=== PATIENT | female | born 2000 | race Caucasian/White ===

== ENCOUNTER 2022-08-03 05:22 | Emergency (ER) | payer OTHER ==
[2022-08-03 05:38] VITALS: BP 112/63
--- NOTE | 2022-08-03 05:50 | ED Physician Documentation ---
History of Present Illness - Stated complaint Stated Complaint: NEEDS COVID TEST - Chief complaint Chief Complaint: General - History obtained from History obtained from: Patient - Additonal information Additional information: The patient comes to the emergency department chief complaint of needing a COVID test. She has had viral symptoms over the last 24 hours and states she cannot go to work if she is positive for COVID. The patient states she has had most of her symptoms since yesterday evening and has noticed a feeling of being hot then cold, that she has not measured a temperature. The patient has had mild nasal congestion and has had body aches. She had some transient nausea which is now better. She denies any vomiting. No cough, shortness of breath, or sore throat. The patient states that a few other people in her office have been diagnosed with COVID over the last month. No other complaints at this time. PD PAST MEDICAL HISTORY - Past Medical History Past Medical History: No - Past Surgical History Past Surgical History: No - Present Medications Home Medications: Ambulatory Orders Medication Instructions Recorded Confirmed No Known Home Medications 08/03/22 08/03/22 - Allergies Allergies/Adverse Reactions: Allergies Allergy/AdvReac Type Severity Reaction Status Date / Time No Known Drug Allergies Allergy Verified 08/03/22 05:38 - Social History Does the pt smoke?: Yes Smoking Status: Current every day smoker Does the pt drink ETOH?: Yes ETOH Use: Liquor Does the pt have substance abuse?: No - Immunizations Immunizations are current?: Yes - POLST Patient has POLST: No PD ED PE NORMAL - Vitals Vital signs reviewed: Yes - General General: Alert and oriented X 3, No acute distress, Well developed/nourished - HEENT HEENT: Atraumatic, PERRL, EOMI, Moist mucous membranes - Neck Neck: Supple, no meningeal sign - Cardiac Cardiac: RRR, No murmur, Strong equal pulses - Respiratory Respiratory: No respiratory distress, Clear bilaterally - Abdomen Abdomen: Soft, Non tender, Non distended - Derm Derm: Normal color, Warm and dry, No rash - Extremities Extremities: No deformity - Neuro Neuro: Alert and oriented X 3 - Psych Psych: Normal mood, Normal affect Results - Vitals Vitals: Vital Signs - 24 hr 08/03/22 05:33 Temperature 37.1 C Heart Rate 101 H Respiratory 17 Rate Blood Pressure 112/63 O2 Saturation 98 Oxygen O2 Source Room air PD Medical Decision Making - ED course Complexity details: reviewed results, re-evaluated patient, considered differential, d/w patient ED course: A respiratory PCR panel was obtained and is pending at this time. I discussed with the patient that we will let her go home and I will give her a work note for today, and we will call her if her COVID test is positive. I have given her the hospital website information to set up the patient portal and check her r esults for herself, as well. We discussed symptomatic management at home, the expected timeline for resolution, and the usual indications for return. Departure - Departure Disposition: Home, Self Care Clinical Impression: Viral syndrome Condition: Stable Instructions: ED Viral Syndrome Comments: A respiratory panel has been obtained and is pending at this time. This test can take some hours to come back, and although we do not call back negative results, we will let you know if any significant positive results come back. If you wish to monitor for your results online, you may go to our hospital website at [email or web address], click on the "my [facility]" tab, and sent for the patient portal. To help with your symptoms, you should drink plenty of water, at least 8 cups/day. You may also take ibuprofen 600 mg every 6 hours and Tylenol 650 mg every 4 hours, as needed for aches, fevers, or chills. You will most likely feel ill for anywhere from a few days to a couple of weeks, and then the illness will go away on its own. Forms: Activity restrictions
[2022-08-03 06:46] LABS: B. PARAPERTUSSIS- RESP PCR PAN NOT DETECTED; B. PERTUSSIS- RESP PCR PANEL NOT DETECTED; C. PNEUMONIAE- RESP PCR PANEL NOT DETECTED; CORONAVIRUS 229E-RESP PCR NOT DETECTED; CORONAVIRUS HKU1-RESP PCR NOT DETECTED; CORONAVIRUS NL63-RESP PCR NOT DETECTED; CORONAVIRUS OC43-RESP PCR NOT DETECTED; HUMAN METAPNEUMOVIRUS NOT DETECTED; INFLUENZA A- RESP PCR PANEL NOT DETECTED; INFLUENZA B - RESP PCR PANEL NOT DETECTED; M. PNEUMONIAE- RESP PCR PANEL NOT DETECTED; PARAINFLUENZA VIRUS 1 NOT DETECTED; PARAINFLUENZA VIRUS 2 NOT DETECTED; PARAINFLUENZA VIRUS 3 NOT DETECTED; PARAINFLUENZA VIRUS 4 NOT DETECTED; RHINOVIRUS/ENTEROVIRUS NOT DETECTED; RSV- RESP PCR PANEL NOT DETECTED; SARS-CoV-2 -RESP PCR PANEL NOT DETECTED
== END 2022-08-03 05:57 | disposition home or self-care (01) ==
LOC: ED 05:22
DX: B34.9 Viral infection, unspecified (principal); Z20.822 Contact with and (suspected) exposure to COVID-19; F17.200 Nicotine dependence, unspecified, uncomplicated
CPT/HCPCS: 87633; 99283